=== PATIENT | male | born 1950 | race Caucasian/White ===

== ENCOUNTER 2020-09-02 13:29 | Inpatient (IN) ==
[2020-09-02] MEDS ORDERED: Dexmedetomidine HCl 400 MCG/100 ML MLS IVC ONE (15:46)
[2020-09-02] MEDS ORDERED: *HR* LORazepam 2 MG/ML VIAL IVP PRN ×3 (15:54)
[2020-09-02] MEDS ORDERED: *HR* LORazepam 2 MG/ML VIAL IVP STA (15:54)
[2020-09-02] MEDS ORDERED: 0.9 % Sodium Chloride w KCl 20 MEQ/1,000 ML MLS IVC SCH (16:30)
[2020-09-02] MEDS: Vitamin B Complex/Vit C/Vit E 1 EACH TABLET PO SCH ×2 (16:39→16:45)
[2020-09-02 16:50] LABS: INR 1.2; Prothrombin Time 13.4 Seconds (9.4-12.1)
[2020-09-02 16:51] LABS: Basophils % 0.1 %
[2020-09-02 16:53] LABS: Activated Partial Thrombo Time 30.1 Seconds (26.0-36.0); Hematocrit 36.8 % (37.5-50.1); Hemoglobin 14.2 g/dL (12.9-16.9); Immature Granulocytes % 0.3 % (0-4); Lymphocytes # 1.2 K/mcL (0.6-4.6); Lymphocytes % 16.1 %; Mean Corpuscular Hemoglobin 35.7 pg (28.0-33.3); Mean Corpuscular Volume 92.5 fL (83.0-100.0); Mean Platelet Volume 8.7 fL (9.4-12.4); Monocytes # 0.9 K/mcL (0.0-1.3); Monocytes % 12.9 %; Platelet Count 159 K/mcL (140-400); Red Blood Count 3.98 M/mcL (4.19-5.50); Red Cell Distribution Width 11.1 % (11.5-14.5); Segmented Neutrophils % 70.6 %; White Blood Count 7.3 K/mcL (4.3-11.1)
[2020-09-02 17:07] LABS: Alanine Aminotransferase 26 Units/L (7-52); Albumin 4.3 g/dL (3.5-5.7); Albumin/Globulin Ratio 1.9 (1.1-2.2); Alkaline Phosphatase 47 Units/L (34-104); Aspartate Amino Transferase 39 Units/L (13-39); BUN/Creatinine Ratio 13 (6-26); Blood Urea Nitrogen 7 mg/dL (8-23); Calcium 8.5 mg/dL (8.6-10.3); Carbon Dioxide 20 mEq/L (23-29); Chloride 73 mEq/L (98-107); Globulin 2.3 g/dL (2.4-3.5); Glucose 114 mg/dL (70-105); Osmolality,Calculated 215 (280-300); Potassium 3.3 mEq/L (3.5-5.1); Sodium 103 mEq/L (136-145); Total Protein 6.6 g/dL (6.4-8.9); eGFR For African Americans > 60 (> 60); eGFR For Non-African Americans > 60 (> 60)
[2020-09-02] MEDS ORDERED: Naloxone 0.4 MG/ML INJ IVP PRN (17:08)
[2020-09-02] MEDS ORDERED: Acetaminophen 325 MG TABLET PO PRN (17:08)
[2020-09-02 17:26] LABS: Mean Corpuscular HGB Conc 38.6 g/dL (31.6-35.5); Neutrophils # 5.2 K/mcL (1.6-8.9)
[2020-09-02] MEDS ORDERED: Thiamine (B-1) 100 MG, Folic Acid 1 MG, MVI, adult with vitamin K 10 ML in 0.9 % Sodi... IVPB SCH (18:00)
[2020-09-02] MEDS: 0.9 % Sodium Chloride w KCl 20 MEQ/1,000 ML MLS IVC SCH (18:17)
[2020-09-02] MEDS: carvediloL 25 MG TABLET PO SCH (19:29)
[2020-09-02] MEDS: Magnesium Oxide 400 MG TABLET PO SCH (19:29)
[2020-09-02] MEDS ORDERED: QUEtiapine Fumarate 25 MG TABLET PO SCH (21:00)
[2020-09-02] MEDS: Dexmedetomidine HCl 400 MCG/100 ML MLS IVC SCH (22:50)
[2020-09-03 01:57] LABS: Basophils % 0.2 %
[2020-09-03 01:59] LABS: Eosinophils % 0.2 %
[2020-09-03 02:15] LABS: BUN/Creatinine Ratio 14 (6-26); Blood Urea Nitrogen 8 mg/dL (8-23); Calcium 8.8 mg/dL (8.6-10.3); Carbon Dioxide 20 mEq/L (23-29); Chloride 85 mEq/L (98-107); Glucose 108 mg/dL (70-105); Osmolality,Calculated 235 (280-300); Potassium 3.5 mEq/L (3.5-5.1); Sodium 113 mEq/L (136-145); eGFR For African Americans > 60 (> 60); eGFR For Non-African Americans > 60 (> 60)
[2020-09-03] MEDS: 0.9 % Sodium Chloride w KCl 20 MEQ/1,000 ML MLS IVC SCH (02:16)
[2020-09-03 03:16] LABS: Immature Granulocytes % 0.3 % (0-4); Lymphocytes # 1.1 K/mcL (0.6-4.6); Lymphocytes % 17.7 %; Mean Platelet Volume 8.3 fL (9.4-12.4); Monocytes # 0.9 K/mcL (0.0-1.3); Monocytes % 14.1 %; Neutrophils # 4.3 K/mcL (1.6-8.9); Platelet Count 145 K/mcL (140-400); Red Cell Distribution Width 11.2 % (11.5-14.5); Segmented Neutrophils % 67.5 %; White Blood Count 6.4 K/mcL (4.3-11.1)
[2020-09-03 03:54] LABS: Hematocrit 37.5 % (37.5-50.1); Hemoglobin 14.2 g/dL (12.9-16.9); Mean Corpuscular Hemoglobin 35.8 pg (28.0-33.3); Mean Corpuscular Volume 94.5 fL (83.0-100.0); Red Blood Count 3.97 M/mcL (4.19-5.50)
[2020-09-03 03:55] LABS: Mean Corpuscular HGB Conc 37.9 g/dL (31.6-35.5)
[2020-09-03] MEDS ORDERED: *HR* Enoxaparin 40 MG/0.4 ML SYRINGE SQ SCH (06:00)
[2020-09-03 06:07] LABS: BUN/Creatinine Ratio 15 (6-26); Blood Urea Nitrogen 9 mg/dL (8-23); Calcium 9.2 mg/dL (8.6-10.3); Carbon Dioxide 21 mEq/L (23-29); Chloride 87 mEq/L (98-107); Glucose 101 mg/dL (70-105); Osmolality,Calculated 241 (280-300); Potassium 3.5 mEq/L (3.5-5.1); Sodium 116 mEq/L (136-145); eGFR For African Americans > 60 (> 60); eGFR For Non-African Americans > 60 (> 60)
[2020-09-03] MEDS: carvediloL 25 MG TABLET PO SCH ×2 (07:46→17:30)
[2020-09-03] MEDS: Dexmedetomidine HCl 400 MCG/100 ML MLS IVC SCH ×2 (08:36→20:05)
[2020-09-03] MEDS: Magnesium Oxide 400 MG TABLET PO SCH ×2 (08:46→20:04)
[2020-09-03] MEDS: Vitamin B Complex/Vit C/Vit E 1 EACH TABLET PO SCH (08:46)
[2020-09-03] MEDS ORDERED: Isosorbide MONOnitrate (24 HR) 30 MG TAB.ER.24H PO SCH (09:00)
[2020-09-03] MEDS ORDERED: amLODIPine 5 MG TABLET PO SCH (09:00)
[2020-09-03] MEDS ORDERED: Folic Acid 1 MG TABLET PO SCH (09:00)
[2020-09-03] MEDS ORDERED: Thiamine (B-1) 100 MG TABLET PO SCH (09:00)
[2020-09-03 14:27] LABS: BUN/Creatinine Ratio 33 (6-26); Blood Urea Nitrogen 24 mg/dL (8-23); Calcium 9.5 mg/dL (8.6-10.3); Carbon Dioxide 21 mEq/L (23-29); Chloride 89 mEq/L (98-107); Glucose 102 mg/dL (70-105); Osmolality,Calculated 254 (280-300); Potassium 3.7 mEq/L (3.5-5.1); Sodium 120 mEq/L (136-145); eGFR For African Americans > 60 (> 60); eGFR For Non-African Americans > 60 (> 60)
[2020-09-03] MEDS ORDERED: Acetaminophen 325 MG TABLET PO PRN (15:51)
[2020-09-03] MEDS ORDERED: Naloxone 0.4 MG/ML INJ IVP PRN (15:51)
[2020-09-03] MEDS ORDERED: carvediloL 25 MG TABLET PO SCH (17:00)
[2020-09-03] MEDS ORDERED: Thiamine (B-1) 100 MG, Folic Acid 1 MG, MVI, adult with vitamin K 10 ML in 0.9 % Sodi... IVPB SCH (18:00)
[2020-09-03] MEDS: QUEtiapine Fumarate 25 MG TABLET PO SCH (20:04)
[2020-09-04] MEDS: Dexmedetomidine HCl 400 MCG/100 ML MLS IVC SCH ×3 (03:38→22:30)
[2020-09-04] MEDS: *HR* Enoxaparin 40 MG/0.4 ML SYRINGE SQ SCH (05:21)
[2020-09-04] MEDS ORDERED: 0.9 % Sodium Chloride 1,000 ML IVC SCH (08:00)
[2020-09-04] MEDS: amLODIPine 5 MG TABLET PO SCH (08:49)
[2020-09-04] MEDS: Thiamine (B-1) 100 MG TABLET PO SCH (08:50)
[2020-09-04] MEDS: carvediloL 25 MG TABLET PO SCH ×2 (08:50→16:12)
[2020-09-04] MEDS: Vitamin B Complex/Vit C/Vit E 1 EACH TABLET PO SCH (08:51)
[2020-09-04] MEDS: Isosorbide MONOnitrate (24 HR) 30 MG TAB.ER.24H PO SCH (08:51)
[2020-09-04] MEDS: Folic Acid 1 MG TABLET PO SCH (08:51)
[2020-09-04] MEDS ORDERED: amLODIPine 5 MG TABLET PO SCH (09:00)
[2020-09-04 09:25] LABS: BUN/Creatinine Ratio 56 (6-26); Blood Urea Nitrogen 41 mg/dL (8-23); Calcium 8.7 mg/dL (8.6-10.3); Carbon Dioxide 22 mEq/L (23-29); Chloride 91 mEq/L (98-107); Glucose 230 mg/dL (70-105); Magnesium 2.2 mg/dL (1.6-2.6); Osmolality,Calculated 265 (280-300); Phosphorous 2.4 mg/dL (2.7-4.5); Potassium 3.5 mEq/L (3.5-5.1); Sodium 119 mEq/L (136-145); eGFR For African Americans > 60 (> 60); eGFR For Non-African Americans > 60 (> 60)
[2020-09-04] MEDS: Magnesium Oxide 400 MG TABLET PO SCH ×2 (12:47→20:20)
[2020-09-04] MEDS: QUEtiapine Fumarate 25 MG TABLET PO SCH (20:20)
[2020-09-05] MEDS: *HR* Enoxaparin 40 MG/0.4 ML SYRINGE SQ SCH (05:07)
[2020-09-05 06:52] LABS: Basophils % 0.4 %; Eosinophils % 0.6 %; Hematocrit 26.6 % (37.5-50.1); Immature Granulocytes % 0.3 % (0-4); Lymphocytes # 2.3 K/mcL (0.6-4.6); Lymphocytes % 32.6 %; Mean Corpuscular HGB Conc 36.1 g/dL (31.6-35.5); Mean Corpuscular Hemoglobin 35.8 pg (28.0-33.3); Mean Corpuscular Volume 99.3 fL (83.0-100.0); Monocytes # 1.1 K/mcL (0.0-1.3); Monocytes % 15.1 %; Neutrophils # 3.7 K/mcL (1.6-8.9); Platelet Count 145 K/mcL (140-400); Red Blood Count 2.68 M/mcL (4.19-5.50); Red Cell Distribution Width 12.1 % (11.5-14.5); White Blood Count 7.2 K/mcL (4.3-11.1)
[2020-09-05 06:56] LABS: Hemoglobin 9.6 g/dL (12.9-16.9)
[2020-09-05 07:09] LABS: BUN/Creatinine Ratio 39 (6-26); Blood Urea Nitrogen 22 mg/dL (8-23); Calcium 8.3 mg/dL (8.6-10.3); Carbon Dioxide 21 mEq/L (23-29); Chloride 99 mEq/L (98-107); Glucose 99 mg/dL (70-105); Magnesium 1.7 mg/dL (1.6-2.6); Osmolality,Calculated 269 (280-300); Phosphorous 3.3 mg/dL (2.7-4.5); Potassium 3.2 mEq/L (3.5-5.1); Sodium 128 mEq/L (136-145); eGFR For African Americans > 60 (> 60); eGFR For Non-African Americans > 60 (> 60)
[2020-09-05] MEDS: amLODIPine 5 MG TABLET PO SCH (08:31)
[2020-09-05] MEDS: Vitamin B Complex/Vit C/Vit E 1 EACH TABLET PO SCH (08:32)
[2020-09-05] MEDS: carvediloL 25 MG TABLET PO SCH ×2 (08:32→17:07)
[2020-09-05] MEDS: Thiamine (B-1) 100 MG TABLET PO SCH (08:33)
[2020-09-05] MEDS: Folic Acid 1 MG TABLET PO SCH (08:33)
[2020-09-05] MEDS: Magnesium Oxide 400 MG TABLET PO SCH ×2 (08:33→19:51)
[2020-09-05] MEDS: Isosorbide MONOnitrate (24 HR) 30 MG TAB.ER.24H PO SCH (08:33)
[2020-09-05 16:21] LABS: Potassium,Urine 26.3 mEq/L
[2020-09-05] MEDS: QUEtiapine Fumarate 25 MG TABLET PO SCH (19:51)
[2020-09-06 03:04] LABS: BUN/Creatinine Ratio 35 (6-26); Blood Urea Nitrogen 19 mg/dL (8-23); Calcium 8.4 mg/dL (8.6-10.3); Carbon Dioxide 21 mEq/L (23-29); Chloride 98 mEq/L (98-107); Glucose 97 mg/dL (70-105); Magnesium 1.8 mg/dL (1.6-2.6); Osmolality,Calculated 264 (280-300); Phosphorous 2.9 mg/dL (2.7-4.5); Potassium 3.5 mEq/L (3.5-5.1); Sodium 126 mEq/L (136-145); eGFR For African Americans > 60 (> 60); eGFR For Non-African Americans > 60 (> 60)
[2020-09-06] MEDS: *HR* Enoxaparin 40 MG/0.4 ML SYRINGE SQ SCH (05:46)
[2020-09-06] MEDS: Thiamine (B-1) 100 MG TABLET PO SCH (08:25)
[2020-09-06] MEDS: amLODIPine 5 MG TABLET PO SCH (08:25)
[2020-09-06] MEDS: Vitamin B Complex/Vit C/Vit E 1 EACH TABLET PO SCH (08:25)
[2020-09-06] MEDS: Folic Acid 1 MG TABLET PO SCH (08:25)
[2020-09-06] MEDS: Magnesium Oxide 400 MG TABLET PO SCH (08:25)
[2020-09-06] MEDS: Isosorbide MONOnitrate (24 HR) 30 MG TAB.ER.24H PO SCH (08:26)
[2020-09-06] MEDS: carvediloL 25 MG TABLET PO SCH (08:26)
[2020-09-06 12:52] LABS: Adenovirus Not Detected (Not Detect); Bordetella Pertussis Not Detected (Not Detect); Chlamydophila pneumoniae Not Detected (Not Detect); Coronavirus 229E Not Detected (Not Detect); Coronavirus HKU1 Not Detected (Not Detect); Coronavirus NL63 Not Detected (Not Detect); Coronavirus OC43 Not Detected (Not Detect); Human Metapneumovirus Not Detected (Not Detect); Human Rhinovirus/Enterovirus Not Detected (Not Detect); Influenza A Subtype 2009 H1 Not Detected (Not Detect); Influenza B Not Detected (Not Detect); Mycoplasma pneumoniae Not Detected (Not Detect); Parainfluenza Virus 1 Not Detected (Not Detect); Parainfluenza Virus 2 Not Detected (Not Detect); Parainfluenza Virus 3 Not Detected (Not Detect); Parainfluenza Virus 4 Not Detected (Not Detect); Respiratory Syncytial Virus Not Detected (Not Detect); SARS-CoV-2 Not Detected (Not Detect)
[2020-09-06 15:18] VITALS: BP 114/69
== END 2020-09-06 16:21 | disposition other institution (70) | DRG 897 ==
LOC: ICNU → SUATTDRO 18:38 → 2NNU 09-04 01:57 → 3ANU 09-04 20:06
PROVIDERS: ADMIT Family Medicine; ATTEND Internal Medicine

== ENCOUNTER 2022-02-06 20:36 | Inpatient (IN) ==
[2022-02-06] MEDS ORDERED: Naloxone 0.4 MG/ML INJ IVP PRN (22:57)
[2022-02-06] MEDS ORDERED: Ondansetron 4 MG/2 ML VIAL IVP PRN (22:57)
[2022-02-06] MEDS ORDERED: Acetaminophen 325 MG TABLET PO PRN (22:57)
[2022-02-07] MEDS: Ketorolac 30 MG/ML VIAL IVP PRN ×2 (01:11→22:24)
[2022-02-07 04:10] LABS: Basophils % 0.3 %; Eosinophils # 0.1 K/mcL (0.0-0.6); Eosinophils % 2.1 %; Hematocrit 33.8 % (37.5-50.1); Hemoglobin 12.4 g/dL (12.9-16.9); Immature Granulocytes % 0.5 % (0-4); Lymphocytes # 1.5 K/mcL (0.6-4.6); Lymphocytes % 22.5 %; Mean Corpuscular HGB Conc 36.7 g/dL (31.6-35.5); Mean Corpuscular Volume 98.3 fL (83.0-100.0); Mean Platelet Volume 8.8 fL (9.4-12.4); Monocytes # 1.2 K/mcL (0.0-1.3); Monocytes % 18.3 %; Neutrophils # 3.7 K/mcL (1.6-8.9); Platelet Count 138 K/mcL (140-400); Red Blood Count 3.44 M/mcL (4.19-5.50); Red Cell Distribution Width 12.1 % (11.5-14.5); Segmented Neutrophils % 56.3 %; White Blood Count 6.6 K/mcL (4.3-11.1)
[2022-02-07 04:32] LABS: Alanine Aminotransferase 31 Units/L (7-52); Albumin 4.3 g/dL (3.5-5.7); Albumin/Globulin Ratio 1.5 (1.1-2.2); Alkaline Phosphatase 53 Units/L (34-104); Aspartate Amino Transferase 34 Units/L (13-39); BUN/Creatinine Ratio 14 (6-26); Blood Urea Nitrogen 10 mg/dL (8-23); Calcium 8.9 mg/dL (8.6-10.3); Carbon Dioxide 21 mEq/L (23-29); Chloride 94 mEq/L (98-107); Globulin 2.9 g/dL (2.4-3.5); Glucose 146 mg/dL (70-105); Magnesium 1.8 mg/dL (1.6-2.6); Osmolality,Calculated 264 (280-300); Phosphorous 3.4 mg/dL (2.7-4.5); Potassium 3.8 mEq/L (3.5-5.1); Sodium 126 mEq/L (136-145); Total Protein 7.2 g/dL (6.4-8.9); eGFR For African Americans > 60 (> 60); eGFR For Non-African Americans > 60 (> 60)
[2022-02-07 04:33] LABS: INR 1.2; Prothrombin Time 13.4 Seconds (9.4-12.1)
[2022-02-07 04:36] LABS: Activated Partial Thrombo Time 32.1 Seconds (26.0-36.0)
[2022-02-07 04:59] LABS: Bacteria,Urine Few per hpf (None-Few); Bilirubin,Urine Negative (Negative); Blood,Urine Small (Negative); Clarity,Urine Clear (Clear); Color,Urine Yellow (Yellow); Glucose,Urine (UA) 100 mg/dL (Normal); Hyaline Casts,Urine Few per lpf (None Seen); Ketones,Urine 20 mg/dL (Negative); Leukocyte Esterase,Urine Negative (Negative); Mucus,Urine Few per lpf (None-Few); Nitrite,Urine Negative (Negative); Protein,Urine 70 mg/dL (Neg-Trace); RBC,Urine 50-100 per hpf (0-3); Specific Gravity,Urine 1.021 (1.010-1.025); WBC,Urine 0-3 per hpf (0-3)
[2022-02-07] MEDS ORDERED: *HR* LORazepam 2 MG/ML VIAL IVP PRN ×2 (05:00)
[2022-02-07] MEDS: 0.9 % Sodium Chloride 1,000 ML IVC SCH (05:20)
[2022-02-07] MEDS ORDERED: *HR* HYDROmorphone PF 0.5 MG/0.5 ML SYRINGE IVP PRN (09:14)
[2022-02-07] MEDS ORDERED: Ondansetron 4 MG/2 ML VIAL IVP PRN (09:14)
[2022-02-07] MEDS ORDERED: *HR* FentaNYL (PF) 100 MCG/2 ML VIAL IVP PRN (09:14)
[2022-02-07 09:20] LABS: BUN/Creatinine Ratio 15 (6-26); Blood Urea Nitrogen 9 mg/dL (8-23); Calcium 8.9 mg/dL (8.6-10.3); Carbon Dioxide 23 mEq/L (23-29); Chloride 95 mEq/L (98-107); Glucose 119 mg/dL (70-105); Osmolality,Calculated 264 (280-300); Potassium 3.7 mEq/L (3.5-5.1); Sodium 127 mEq/L (136-145); eGFR For African Americans > 60 (> 60); eGFR For Non-African Americans > 60 (> 60)
[2022-02-07] MEDS ORDERED: *HR* Propofol 200 MG/20 ML VIAL IVP ONE (09:30)
[2022-02-07] MEDS ORDERED: Lidocaine -MPF 2% 2 ML VIAL ONE (09:32)
[2022-02-07] MEDS ORDERED: *HR* FentaNYL (PF) 100 MCG/2 ML VIAL ONE (09:33)
[2022-02-07] MEDS ORDERED: Albumin Human 5% 0 GM/0 ML IV.SOLN ONE (09:52)
[2022-02-07] MEDS ORDERED: *HR* Rocuronium Bromide 50 MG/5 ML VIAL ONE (09:53)
[2022-02-07] MEDS ORDERED: *HR* Succinylcholine 200 MG/10 ML VIAL IVP ONE (09:53)
[2022-02-07] MEDS ORDERED: Lidocaine HCL 4 ML Topical Solution (Laryng-O-Jet Kit Sterile Pak) TP ONE (09:53)
[2022-02-07] MEDS ORDERED: EPHEDrine 50 MG/ML VIAL ONE (10:29)
[2022-02-07] MEDS ORDERED: Sugammadex Sodium 200 MG/2 ML VIAL IV ONE (11:18)
[2022-02-07] MEDS ORDERED: *HR* HYDROMORPHONE 2 MG/ML VIAL ONE (11:28)
[2022-02-07] MEDS: Folic Acid 1 MG in 0.9 % Sodium Chloride 50 ML IVPB SCH (17:40)
[2022-02-07] MEDS: Thiamine (B-1) 200 MG in 0.9 % Sodium Chloride 50 ML IVPB SCH (17:40)
[2022-02-07] MEDS: CeFAZolin 2 GM/120 ML BAG IVPB SCH (18:07)
[2022-02-08] MEDS: CeFAZolin 2 GM/120 ML BAG IVPB SCH (01:58)
[2022-02-08 05:51] LABS: Immature Granulocytes % 0.4 % (0-4); Lymphocytes # 1.5 K/mcL (0.6-4.6); Lymphocytes % 16.9 %; Mean Corpuscular HGB Conc 35.2 g/dL (31.6-35.5); Mean Corpuscular Hemoglobin 35.7 pg (28.0-33.3); Mean Corpuscular Volume 101.5 fL (83.0-100.0); Mean Platelet Volume 9.2 fL (9.4-12.4); Monocytes # 1.5 K/mcL (0.0-1.3); Monocytes % 16.8 %; Neutrophils # 5.9 K/mcL (1.6-8.9); Platelet Count 123 K/mcL (140-400); Red Blood Count 2.66 M/mcL (4.19-5.50); Red Cell Distribution Width 12.2 % (11.5-14.5); Segmented Neutrophils % 65.9 %
[2022-02-08 06:05] LABS: Hemoglobin 9.5 g/dL (12.9-16.9)
[2022-02-08 06:12] LABS: BUN/Creatinine Ratio 24 (6-26); Blood Urea Nitrogen 21 mg/dL (8-23); Calcium 8.8 mg/dL (8.6-10.3); Carbon Dioxide 24 mEq/L (23-29); Chloride 95 mEq/L (98-107); Glucose 131 mg/dL (70-105); Magnesium 1.9 mg/dL (1.6-2.6); Osmolality,Calculated 267 (280-300); Potassium 3.7 mEq/L (3.5-5.1); Sodium 126 mEq/L (136-145); eGFR For African Americans > 60 (> 60); eGFR For Non-African Americans > 60 (> 60)
[2022-02-08] MEDS: Magnesium Oxide 400 MG TABLET PO SCH (07:59)
[2022-02-08] MEDS: Cholecalciferol (D-3) 1,000 UNIT (25MCG) TABLET PO SCH (08:00)
[2022-02-08] MEDS: Multivit/Ca/Min/Fe/FA 1 TAB TABLET PO SCH (08:00)
[2022-02-08] MEDS: Aspirin 81 MG TAB.CHEW PO SCH (08:00)
[2022-02-08] MEDS: carvediloL 25 MG TABLET PO SCH ×2 (08:00→21:24)
[2022-02-08] MEDS: Isosorbide MONOnitrate (24 HR) 30 MG TAB.ER.24H PO SCH (08:15)
[2022-02-08] MEDS: *HR* Enoxaparin 40 MG/0.4 ML SYRINGE SQ SCH (12:29)
[2022-02-08] MEDS: Thiamine (B-1) 200 MG in 0.9 % Sodium Chloride 50 ML IVPB SCH (12:30)
[2022-02-08] MEDS: Folic Acid 1 MG in 0.9 % Sodium Chloride 50 ML IVPB SCH (12:31)
[2022-02-08] MEDS: QUEtiapine Fumarate 25 MG TABLET PO SCH (20:03)
[2022-02-08] MEDS ORDERED: Saline Nasal Spray 44 ML BOTTLE NS PRN (21:37)
[2022-02-08] MEDS ORDERED: Saliva Stimulant 44.3ml BOTTLE PO PRN (21:37)
[2022-02-08] MEDS ORDERED: Nicotine 2 MG GUM BC PRN (23:30)
[2022-02-09] MEDS: Beer can PO SCH ×5 (01:38→22:08)
[2022-02-09] MEDS: Nicotine 21 MG PATCH.TD24 TD SCH ×2 (01:38→09:39)
[2022-02-09 04:47] LABS: Hematocrit 20.7 % (37.5-50.1); Mean Corpuscular HGB Conc 35.7 g/dL (31.6-35.5); Red Cell Distribution Width 12.2 % (11.5-14.5)
[2022-02-09 04:49] LABS: Hemoglobin 7.4 g/dL (12.9-16.9); Immature Granulocytes % 0.6 % (0-4); Immature Platelets 5.6 % (1.1-6.1); Lymphocytes # 1.8 K/mcL (0.6-4.6); Lymphocytes % 22.2 %; Mean Corpuscular Hemoglobin 35.7 pg (28.0-33.3); Mean Platelet Volume 9.7 fL (9.4-12.4); Monocytes # 1.7 K/mcL (0.0-1.3); Monocytes % 20.8 %; Neutrophils # 4.5 K/mcL (1.6-8.9); Platelet Count 110 K/mcL (140-400); Red Blood Count 2.07 M/mcL (4.19-5.50); Segmented Neutrophils % 56.4 %
[2022-02-09 05:07] LABS: BUN/Creatinine Ratio 30 (6-26); Blood Urea Nitrogen 25 mg/dL (8-23); Calcium 8.4 mg/dL (8.6-10.3); Carbon Dioxide 21 mEq/L (23-29); Chloride 95 mEq/L (98-107); Glucose 120 mg/dL (70-105); Magnesium 1.9 mg/dL (1.6-2.6); Osmolality,Calculated 262 (280-300); Potassium 4.2 mEq/L (3.5-5.1); Sodium 123 mEq/L (136-145); eGFR For African Americans > 60 (> 60); eGFR For Non-African Americans > 60 (> 60)
[2022-02-09] MEDS: *HR* Enoxaparin 40 MG/0.4 ML SYRINGE SQ SCH (05:42)
[2022-02-09 06:14] LABS: Hematocrit 20.8 % (37.5-50.1); Hemoglobin 7.4 g/dL (12.9-16.9)
[2022-02-09] MEDS: 0.9 % Sodium Chloride 1,000 ML IVC SCH (07:31)
[2022-02-09] MEDS ORDERED: 0.9 % Sodium Chloride 500 ML ONE (08:18)
[2022-02-09] MEDS: Multivit/Ca/Min/Fe/FA 1 TAB TABLET PO SCH (09:37)
[2022-02-09] MEDS: Magnesium Oxide 400 MG TABLET PO SCH (09:37)
[2022-02-09] MEDS: Cholecalciferol (D-3) 1,000 UNIT (25MCG) TABLET PO SCH (09:37)
[2022-02-09] MEDS: Aspirin 81 MG TAB.CHEW PO SCH (09:37)
[2022-02-09] MEDS: Isosorbide MONOnitrate (24 HR) 30 MG TAB.ER.24H PO SCH (09:37)
[2022-02-09] MEDS: carvediloL 25 MG TABLET PO SCH ×2 (11:07→17:11)
[2022-02-09] MEDS: Folic Acid 1 MG in 0.9 % Sodium Chloride 50 ML IVPB SCH (12:11)
[2022-02-09] MEDS: Thiamine (B-1) 200 MG in 0.9 % Sodium Chloride 50 ML IVPB SCH (12:11)
[2022-02-09] MEDS: Thiamine (B-1) 100 MG TABLET PO SCH (12:34)
[2022-02-09] MEDS: *HR* LORazepam 2 MG/ML VIAL IVP PRN ×2 (12:35→18:39)
[2022-02-09 13:23] LABS: Hematocrit 25.5 % (37.5-50.1); Hemoglobin 9.2 g/dL (12.9-16.9)
[2022-02-09] MEDS: Artificial Tears SOLN 15 ML BOTTLE BOTH EYES SCH ×2 (14:51→21:09)
[2022-02-09] MEDS: QUEtiapine Fumarate 25 MG TABLET PO SCH (21:06)
[2022-02-10] MEDS: *HR* Enoxaparin 40 MG/0.4 ML SYRINGE SQ SCH (05:07)
[2022-02-10 07:42] LABS: Hemoglobin 7.9 g/dL (12.9-16.9); Lymphocytes # 1.4 K/mcL (0.6-4.6); Mean Corpuscular HGB Conc 35.9 g/dL (31.6-35.5); Mean Corpuscular Hemoglobin 35.7 pg (28.0-33.3); Mean Corpuscular Volume 99.5 fL (83.0-100.0); Neutrophils # 4.4 K/mcL (1.6-8.9); Platelet Count 101 K/mcL (140-400); Red Blood Count 2.21 M/mcL (4.19-5.50); Red Cell Distribution Width 12.8 % (11.5-14.5); White Blood Count 7.4 K/mcL (4.3-11.1)
[2022-02-10 08:18] LABS: Monocytes # 1.6 K/mcL (0.0-1.3)
[2022-02-10 08:25] LABS: BUN/Creatinine Ratio 22 (6-26); Blood Urea Nitrogen 17 mg/dL (8-23); Calcium 8.1 mg/dL (8.6-10.3); Carbon Dioxide 20 mEq/L (23-29); Chloride 94 mEq/L (98-107); Glucose 101 mg/dL (70-105); Magnesium 1.8 mg/dL (1.6-2.6); Osmolality,Calculated 256 (280-300); Potassium 3.8 mEq/L (3.5-5.1); Sodium 122 mEq/L (136-145); eGFR For African Americans > 60 (> 60); eGFR For Non-African Americans > 60 (> 60)
[2022-02-10] MEDS ORDERED: Tolvaptan 15 MG TABLET PO ONE (08:59)
[2022-02-10] MEDS: Thiamine (B-1) 100 MG TABLET PO SCH (09:08)
[2022-02-10] MEDS: Isosorbide MONOnitrate (24 HR) 30 MG TAB.ER.24H PO SCH (09:09)
[2022-02-10] MEDS: Nicotine 21 MG PATCH.TD24 TD SCH (09:09)
[2022-02-10] MEDS: carvediloL 25 MG TABLET PO SCH ×2 (09:10→18:18)
[2022-02-10] MEDS: Multivit/Ca/Min/Fe/FA 1 TAB TABLET PO SCH (09:10)
[2022-02-10] MEDS: Cholecalciferol (D-3) 1,000 UNIT (25MCG) TABLET PO SCH (09:10)
[2022-02-10] MEDS: Aspirin 81 MG TAB.CHEW PO SCH (09:10)
[2022-02-10] MEDS: Magnesium Oxide 400 MG TABLET PO SCH (09:10)
[2022-02-10] MEDS: Folic Acid 1 MG TABLET PO SCH (09:10)
[2022-02-10] MEDS: Artificial Tears SOLN 15 ML BOTTLE BOTH EYES SCH ×2 (09:11→20:51)
[2022-02-10 09:17] LABS: Platelet Estimate Decreased (Normal)
[2022-02-10] MEDS: Beer can PO SCH (10:35)
[2022-02-10] MEDS: Ketorolac 30 MG/ML VIAL IVP PRN (11:16)
[2022-02-10] MEDS: QUEtiapine Fumarate 25 MG TABLET PO SCH (20:50)
[2022-02-11 00:31] LABS: Basophils % 0.2 %; Eosinophils % 0.3 %; Hematocrit 21.7 % (37.5-50.1); Hemoglobin 7.7 g/dL (12.9-16.9); Immature Granulocytes % 0.5 % (0-4); Lymphocytes # 1.4 K/mcL (0.6-4.6); Lymphocytes % 22.5 %; Mean Corpuscular HGB Conc 35.5 g/dL (31.6-35.5); Mean Corpuscular Hemoglobin 35.3 pg (28.0-33.3); Mean Corpuscular Volume 99.5 fL (83.0-100.0); Mean Platelet Volume 9.9 fL (9.4-12.4); Monocytes % 22.4 %; Neutrophils # 3.3 K/mcL (1.6-8.9); Platelet Count 117 K/mcL (140-400); Red Blood Count 2.18 M/mcL (4.19-5.50); Segmented Neutrophils % 54.1 %
[2022-02-11 00:32] LABS: Monocytes # 1.3 K/mcL (0.0-1.3)
[2022-02-11 00:52] LABS: BUN/Creatinine Ratio 24 (6-26); Blood Urea Nitrogen 24 mg/dL (8-23); Calcium 8.6 mg/dL (8.6-10.3); Carbon Dioxide 21 mEq/L (23-29); Chloride 98 mEq/L (98-107); Glucose 107 mg/dL (70-105); Osmolality,Calculated 269 (280-300); Potassium 4.2 mEq/L (3.5-5.1); Sodium 127 mEq/L (136-145); eGFR For African Americans > 60 (> 60); eGFR For Non-African Americans > 60 (> 60)
[2022-02-11] MEDS: *HR* Enoxaparin 40 MG/0.4 ML SYRINGE SQ SCH (05:39)
[2022-02-11] MEDS: Cholecalciferol (D-3) 1,000 UNIT (25MCG) TABLET PO SCH (08:51)
[2022-02-11] MEDS: Thiamine (B-1) 100 MG TABLET PO SCH (08:51)
[2022-02-11] MEDS: carvediloL 25 MG TABLET PO SCH ×2 (08:52→15:38)
[2022-02-11] MEDS: Folic Acid 1 MG TABLET PO SCH (08:52)
[2022-02-11] MEDS: Magnesium Oxide 400 MG TABLET PO SCH (08:52)
[2022-02-11] MEDS: Isosorbide MONOnitrate (24 HR) 30 MG TAB.ER.24H PO SCH (08:52)
[2022-02-11] MEDS: Aspirin 81 MG TAB.CHEW PO SCH (08:52)
[2022-02-11] MEDS: Multivit/Ca/Min/Fe/FA 1 TAB TABLET PO SCH (08:53)
[2022-02-11] MEDS: Nicotine 21 MG PATCH.TD24 TD SCH (08:53)
[2022-02-11] MEDS: Artificial Tears SOLN 15 ML BOTTLE BOTH EYES SCH ×2 (09:00→21:31)
[2022-02-11] MEDS: Ketorolac 30 MG/ML VIAL IVP PRN (10:06)
[2022-02-11] MEDS ORDERED: Cyanocobalamin (B-12) 1,000 MCG/ML VIAL SQ ONE (15:20)
[2022-02-11] MEDS: Iron Sucrose Complex 250 MG in 0.9 % Sodium Chloride 250 ML IVPB SCH (16:53)
[2022-02-11] MEDS: QUEtiapine Fumarate 25 MG TABLET PO SCH (21:31)
[2022-02-12] MEDS: *HR* Enoxaparin 40 MG/0.4 ML SYRINGE SQ SCH (06:10)
[2022-02-12 07:43] LABS: Basophils % 0.3 %; Eosinophils # 0.1 K/mcL (0.0-0.6); Eosinophils % 1.6 %; Hematocrit 25.1 % (37.5-50.1); Hemoglobin 8.8 g/dL (12.9-16.9); Immature Granulocytes % 0.5 % (0-4); Lymphocytes % 25.7 %; Mean Corpuscular HGB Conc 35.1 g/dL (31.6-35.5); Mean Corpuscular Hemoglobin 35.5 pg (28.0-33.3); Mean Corpuscular Volume 101.2 fL (83.0-100.0); Mean Platelet Volume 9.8 fL (9.4-12.4); Monocytes # 1.5 K/mcL (0.0-1.3); Monocytes % 23.8 %; Neutrophils # 3.1 K/mcL (1.6-8.9); Platelet Count 179 K/mcL (140-400); Red Blood Count 2.48 M/mcL (4.19-5.50); Red Cell Distribution Width 13.4 % (11.5-14.5); Segmented Neutrophils % 48.1 %; White Blood Count 6.4 K/mcL (4.3-11.1)
[2022-02-12 07:45] LABS: Lymphocytes # 1.6 K/mcL (0.6-4.6)
[2022-02-12 09:20] LABS: Platelet Estimate Normal (Normal)
[2022-02-12 09:24] LABS: BUN/Creatinine Ratio 26 (6-26); Blood Urea Nitrogen 20 mg/dL (8-23); Calcium 8.6 mg/dL (8.6-10.3); Carbon Dioxide 21 mEq/L (23-29); Chloride 105 mEq/L (98-107); Glucose 92 mg/dL (70-105); Osmolality,Calculated 278 (280-300); Potassium 4.1 mEq/L (3.5-5.1); Sodium 133 mEq/L (136-145); eGFR For African Americans > 60 (> 60); eGFR For Non-African Americans > 60 (> 60)
[2022-02-12] MEDS: Iron Sucrose Complex 250 MG in 0.9 % Sodium Chloride 250 ML IVPB SCH (09:43)
[2022-02-12] MEDS: Multivit/Ca/Min/Fe/FA 1 TAB TABLET PO SCH (09:44)
[2022-02-12] MEDS: Aspirin 81 MG TAB.CHEW PO SCH (09:45)
[2022-02-12] MEDS: Nicotine 21 MG PATCH.TD24 TD SCH (09:45)
[2022-02-12] MEDS: Magnesium Oxide 400 MG TABLET PO SCH (09:45)
[2022-02-12] MEDS: Isosorbide MONOnitrate (24 HR) 30 MG TAB.ER.24H PO SCH (09:45)
[2022-02-12] MEDS: Cholecalciferol (D-3) 1,000 UNIT (25MCG) TABLET PO SCH (09:45)
[2022-02-12] MEDS: Folic Acid 1 MG TABLET PO SCH (09:45)
[2022-02-12] MEDS: Artificial Tears SOLN 15 ML BOTTLE BOTH EYES SCH (09:46)
[2022-02-12] MEDS: Thiamine (B-1) 100 MG TABLET PO SCH (09:51)
[2022-02-12] MEDS: carvediloL 25 MG TABLET PO SCH (09:51)
[2022-02-12 10:45] LABS: Phosphorous 3.8 mg/dL (2.7-4.5)
[2022-02-12] MEDS ORDERED: polyethylene glycoL 3350 17 GM POWD.PACK PO SCH (11:30)
[2022-02-12 16:11] VITALS: BP 135/71; PULSE 73; TEMP 98; O2SAT 94
== END 2022-02-12 19:16 | DRG 481 ==
LOC: 4WAOSI → SUATTDRO 22:46
PROVIDERS: ADMIT Internal Medicine; ATTEND Pharmacist